=== PATIENT | female | born 1990 | race Caucasian/White ===

== ENCOUNTER 2024-01-28 14:26 | Inpatient (IN) | payer BC, OTHER ==
[~2024-01-28] VITALS: Ht 175.3 cm; Wt 101.2 kg
[2024-01-28 15:00] LABS: APPEARANCE,URINE Clear (CLEAR); BILIRUBIN,URINE Negative (NEGATIVE); BLOOD, URINE Moderate Ery/uL (NEGATIVE); COLOR,URINE LIGHT YELLOW (YELLOW); KETONES,URINE 15 mg/dL (NEGATIVE); LEUKOCYTE ESTERASE ,URINE Negative (NEGATIVE); NITRITE, URINE Negative (NEGATIVE); PROTEIN,URINE 100 mg/dl (NEGATIVE); UGLUCOSE Negative (NEGATIVE); UROBILINOGEN,URINE 0.2 EU/dL (0.2)
[2024-01-28 15:13] LABS: BASOPHILS # (AUTO) 0.1 K/uL (0.0-0.2); BASOPHILS % (AUTO) 0.3 % (0.0-2.0); EOSINOPHILS # (AUTO) 0.4 K/uL (0.0-0.7); EOSINOPHILS % (AUTO) 1.5 % (0.0-6.0); HEMATOCRIT 46 % (33-45); HEMOGLOBIN 14.8 g/dL (11.5-14.8); LYMPHOCYTES # (AUTO) 3.5 K/uL (0.8-4.8); LYMPHOCYTES % (AUTO) 14.4 % (20.0-44.0); MEAN CORPUSCULAR HEMOGLOBIN 29 PG (26.0-33.0); MEAN CORPUSCULAR HGB CONC 32 g/dl (31.0-36.0); MEAN CORPUSCULAR VOLUME 89 fL (82-100); MONOCYTES # (AUTO) 1.3 K/uL (0.1-1.30); MONOCYTES % (AUTO) 5.1 % (2.0-12.0); NEUTROPHILS # (AUTO) 19.3 K/uL (1.8-8.9); NEUTROPHILS % (AUTO) 78.7 % (43.0-81.0); PLATELET COUNT (AUTO) 357 K/uL (150-450); RED BLOOD CELL COUNT(AUTO) 5.18 MIL/uL (4.0-5.2); RED CELL DISTRIBUTION WIDTH 13.6 % (11.5-15.0); WHITE BLOOD COUNT (AUTO) 24.6 K/uL (4.3-11.0)
[2024-01-28 15:22] LABS: AMPHETAMINE, URINE NEGATIVE (NEGATIVE); BARBITURATE, URINE NEGATIVE (NEGATIVE); BENZODIAZEPINE, URINE NEGATIVE (NEGATIVE); COCCAINE, URINE NEGATIVE (NEGATIVE); OPIATE, URINE NEGATIVE (NEGATIVE); PHENCYCLIDINE SCREEN,URINE NEGATIVE (NEGATIVE)
[2024-01-28 15:23] LABS: CANNABINOID, URINE POSITIVE (NEGATIVE)
[2024-01-28 15:25] LABS: CALCIUM, SERUM 9.3 mg/dL (8.5-10.1); CARBON DIOXIDE 16 mmol/L (21-32); CHLORIDE 100 mmol/L (98-107); CREATININE 1.1 mg/dL (0.6-1.3); GLUCOSE 158 mg/dL (74-106); POTASSIUM 3.8 mmol/L (3.5-5.1); SODIUM SERUM 133 mmol/L (136-145); UREA NITROGEN, BLOOD 12 mg/dL (7-18)
[2024-01-28 15:26] LABS: ADD URINE CULTURE NO; BACTERIA,URINE Rare /HPF (None Seen); SQUAMOUS EPITHELIAL CELL,UR Moderate /HPF (None Seen); WBC,URINE 0-2 /HPF (0-3)
[2024-01-28 15:27] LABS: CALCIUM OXALATE CRYSTALS,UR Many /HPF (None Seen)
[2024-01-28] MEDS: IV NS 0.9% 1,000 ML BAG IV ONE ×2 (15:30→16:00)
[2024-01-28 15:31] LABS: INR 0.95 (0.91-1.10); PARTIAL THROMBOPLASTIN TIME 24.8 SEC (24.3-34.3); PROTHROMBIN TIME 9.8 SECS (9.2-11.1)
[2024-01-28 15:38] LABS: ALANINE AMINOTRANSFERASE 53 U/L (12-78); ALBUMIN 3.8 g/dL (3.4-5.0); ALCOHOL, BLOOD < 3 mg/dL (0-10); ALKALINE PHOSPHATASE 107 U/L (46-116); ASPARTATE AMINOTRANSFERASE 23 U/L (15-37); BILIRUBIN,DIRECT 0.1 mg/dL (0.0-0.2); BILIRUBIN,TOTAL 0.5 mg/dL (0.2-1.0); TOTAL PROTEIN, SERUM 8.1 g/dL (6.4-8.2)
[2024-01-28 15:43] LABS: ACETAMINOPHEN 0 ug/ml (10-30); SALICYLATE 1.7 mg/dL (2.8-20.0)
[2024-01-28] MEDS ORDERED: PROG100C15 PO (16:00)
[2024-01-28] MEDS ORDERED: ESTR2TAB PO (16:00)
[2024-01-28] MEDS ORDERED: SPIR100T PO (16:00)
[2024-01-28 16:13] LABS: SERUM AMMONIA 62 umol/L (11-32)
[2024-01-28] MEDS: LEVETIRACETAM (500MG) 1,000 MG in IV NS 0.9% 90 ML IV STA (16:20)
[2024-01-28] MEDS: CEFTRIAXONE 1 G in IV D5W 50 ML IV ONE (16:55)
[2024-01-28] MEDS: VANCOMYCIN 1 GM in IV D5W 250 ML IV ONE (17:30)
[2024-01-28] MEDS ORDERED: MAG HYDROX/AL HYDROX/SIMETH 30 ML UDC PO PRN (21:00)
[2024-01-28] MEDS ORDERED: ONDANSETRON HCL/PF 4 MG/2 ML VIAL IVP PRN (21:00)
[2024-01-28] MEDS ORDERED: ACETAMINOPHEN 325 MG TABLET PO PRN (21:00)
[2024-01-28] MEDS ORDERED: MAGNESIUM HYDROXIDE 30 ML UDC PO PRN (21:00)
[2024-01-28 21:18] VITALS: BP 111/64; TEMP 98.3; O2SAT 96
[2024-01-28] MEDS: ENOXAPARIN SODIUM 40 MG/0.4 ML DISP.SYRIN SQ SCH (22:08)
[2024-01-28] MEDS: IV NS 0.9% 1,000 ML IV PRN (22:09)
[2024-01-28] MEDS ORDERED: CEFEPIME 1 GM VIAL ONE (22:20)
[2024-01-28] MEDS: CEFEPIME 2 GM in IV D5W 100 ML IV SCH (22:35)
[2024-01-29] VITALS: BP 98/62; TEMP 98; O2SAT 96
[2024-01-29 04:00] VITALS: BP 98/57; TEMP 98.3; O2SAT 98
[2024-01-29] MEDS ORDERED: CEFEPIME 1 GM VIAL ONE (04:09)
[2024-01-29] MEDS ORDERED: LEVETIRACETAM (500MG) 500 MG/5 ML VIAL IV ONE (04:09)
[2024-01-29] MEDS: LEVETIRACETAM (500MG) 1,000 MG in IV NS 0.9% 90 ML IV SCH (04:18)
[2024-01-29 06:53] LABS: BASOPHILS # (AUTO) 0.1 K/uL (0.0-0.2); BASOPHILS % (AUTO) 0.4 % (0.0-2.0); EOSINOPHILS # (AUTO) 0.4 K/uL (0.0-0.7); EOSINOPHILS % (AUTO) 2.2 % (0.0-6.0); HEMATOCRIT 38 % (33-45); HEMOGLOBIN 12.8 g/dL (11.5-14.8); LYMPHOCYTES # (AUTO) 2.5 K/uL (0.8-4.8); LYMPHOCYTES % (AUTO) 15.2 % (20.0-44.0); MEAN CORPUSCULAR HEMOGLOBIN 30 PG (26.0-33.0); MEAN CORPUSCULAR HGB CONC 34 g/dl (31.0-36.0); MEAN CORPUSCULAR VOLUME 88 fL (82-100); MONOCYTES # (AUTO) 1.1 K/uL (0.1-1.30); MONOCYTES % (AUTO) 6.9 % (2.0-12.0); NEUTROPHILS # (AUTO) 12.1 K/uL (1.8-8.9); NEUTROPHILS % (AUTO) 75.3 % (43.0-81.0); PLATELET COUNT (AUTO) 264 K/uL (150-450); RED BLOOD CELL COUNT(AUTO) 4.33 MIL/uL (4.0-5.2); RED CELL DISTRIBUTION WIDTH 13.6 % (11.5-15.0); WHITE BLOOD COUNT (AUTO) 16.1 K/uL (4.3-11.0)
[2024-01-29 07:11] LABS: CALCIUM, SERUM 8.6 mg/dL (8.5-10.1); CREATININE 1.1 mg/dL (0.6-1.3); MAGNESIUM 2.2 mg/dL (1.8-2.4); PHOSPHORUS 3.5 mg/dL (2.5-4.9); POTASSIUM 3.4 mmol/L (3.5-5.1)
[2024-01-29 08:00] VITALS: BP 125/60; TEMP 97.9; O2SAT 98
[2024-01-29] MEDS: SPIRONOLACTONE 25 MG TABLET PO SCH (08:51)
[2024-01-29] MEDS: ESTRADIOL 1 MG TABLET PO SCH (08:51)
[2024-01-29] MEDS ORDERED: Medication Not On Formulary EA (Progesterone,Micronized (Prometrium) 100 MG) PO SCH (09:00)
[2024-01-29] MEDS: POTASSIUM CHLORIDE 20 MEQ TAB.PRT.SR PO SCH (11:19)
[2024-01-29 14:08] VITALS: BP 120/62; TEMP 97.7; O2SAT 98
[2024-01-29 16:00] VITALS: BP 118/60; TEMP 98.2; O2SAT 97
[2024-01-29] MEDS ORDERED: LEVE500T9 PO (18:13)
[2024-01-29] MEDS ORDERED: DOXY-326 PO (18:13)
[2024-01-29 20:00] VITALS: BP 113/69; TEMP 98; O2SAT 98
[2024-01-30] VITALS: BP 116/62; TEMP 97.8; O2SAT 98
[2024-01-30 04:00] VITALS: BP 129/62; TEMP 97.8; O2SAT 98
[2024-01-30 08:00] VITALS: BP 114/69; TEMP 96.9; O2SAT 99
[2024-01-30] MEDS: LEVETIRACETAM (250 MG) 250 MG TABLET PO SCH (16:24)
[2024-01-30 20:00] VITALS: BP 95/56; TEMP 98; O2SAT 98
[2024-01-31 04:00] VITALS: BP 106/54; TEMP 97.8; O2SAT 98
[2024-01-31 14:14] VITALS: BP 106/54; TEMP 97.8; O2SAT 98
[2024-01-31 16:00] VITALS: BP 100/72; TEMP 98.1; O2SAT 98
[2024-01-31] MEDS: OLANZAPINE 10 MG VIAL IM ONE (19:12)
[2024-02-01] MEDS ORDERED: OLANZAPINE 10 MG VIAL IM ONE (11:30)
[2024-02-02 08:00] VITALS: BP 100/72; TEMP 98.1; O2SAT 98
[2024-02-02 17:00] VITALS: BP 105/78; TEMP 98.3; O2SAT 97
[2024-02-03] MEDS: DIVALPROEX SODIUM 125 MG CAP.SPRINK PO SCH (13:00)
[2024-02-03] MEDS: LORAZEPAM 1 MG TABLET PO PRN (16:31)
== END 2024-02-03 19:11 | DRG 100 ==
LOC: EDSEX 14:26 → ER 14:29 → TELE1 19:55 → MEDSG1 01-30 13:05
PROVIDERS: ADMIT Nurse Practitioner Acute Care; ATTEND Nurse Practitioner Family
DX: R56.9 Unspecified convulsions (principal); J69.0 Pneumonitis due to inhalation of food and vomit; F84.0 Autistic disorder; R45.851 Suicidal ideations; E72.20 Disorder of urea cycle metabolism, unspecified; E87.20 Acidosis, unspecified; F33.9 Major depressive disorder, recurrent, unspecified; E87.1 Hypo-osmolality and hyponatremia; G93.40 Encephalopathy, unspecified; D68.69 Other thrombophilia; E66.01 Morbid (severe) obesity due to excess calories; Z88.0 Allergy status to penicillin; D72.829 Elevated white blood cell count, unspecified; F64.0 Transsexualism; Z87.820 Personal history of traumatic brain injury; Z20.822 Contact with and (suspected) exposure to COVID-19; F89 Unspecified disorder of psychological development; F60.9 Personality disorder, unspecified; F39 Unspecified mood [affective] disorder; F12.90 Cannabis use, unspecified, uncomplicated; Z68.32 Body mass index [BMI] 32.0-32.9, adult
CPT/HCPCS: 36415; 70450-TC; 71045-TC; 80048-TC; 80061-TC; 80076-TC; 81001; 82140-TC; 82962-TC; 83605-TC; 83735-TC; 84100-TC; 84443-TC; 84484-TC; 85025-TC; 85730-TC; 87040-TC; A4223; G0378; G0480; J0692; J0696; J1650; J1953; J3370; J3490; J7030; J7060

== ENCOUNTER 2024-02-03 15:12 | Inpatient (IN) | payer OTHER ==
[~2024-02-03] VITALS: Ht 175.3 cm; Wt 101.2 kg
[~2024-02-03 15:12] MED LIST: DOXY-326 PO; ESTR2TAB PO; LEVE500T9 PO; PROG100C15 PO; SPIR100T PO
[2024-02-03] MEDS: OLANZAPINE 10 MG VIAL IM ONE (19:37)
[2024-02-03] MEDS: LORAZEPAM INJ 2 MG/ML VIAL ONE (19:59)
[2024-02-03] MEDS ORDERED: LORAZEPAM 1 MG TABLET PO PRN (20:00)
[2024-02-03] MEDS ORDERED: ACETAMINOPHEN 325 MG TABLET PO PRN (20:00)
[2024-02-03] MEDS ORDERED: ZOLPIDEM TARTRATE 10 MG TABLET PO PRN (20:00)
[2024-02-03] MEDS ORDERED: MAG HYDROX/AL HYDROX/SIMETH 30 ML UDC PO PRN (20:00)
[2024-02-03] MEDS ORDERED: MAGNESIUM HYDROXIDE 30 ML UDC PO PRN (20:00)
[2024-02-03] MEDS: diphenhydrAMINE HCL 50 MG/ML VIAL IM ONE (20:07)
[2024-02-03] MEDS: LORAZEPAM INJ 2 MG/ML VIAL IM ONE (20:07)
[2024-02-03] MEDS: BLOOD SUGAR DIAGNOSTIC 1 EACH STRIP IN ONE (20:25)
[2024-02-04] MEDS ORDERED: Medication Not On Formulary EA (Progesterone,Micronized (Prometrium) 100 MG) PO SCH (09:00)
[2024-02-04] MEDS: SPIRONOLACTONE 25 MG TABLET PO SCH (09:47)
[2024-02-04] MEDS: ESTRADIOL 1 MG TABLET PO SCH (09:48)
[2024-02-04] MEDS: LEVETIRACETAM (250 MG) 250 MG TABLET PO SCH (09:48)
[2024-02-04] MEDS: DIVALPROEX SODIUM 125 MG CAP.SPRINK PO SCH (10:00)
[2024-02-04] MEDS: OLANZAPINE ZYDIS 5 MG TAB.RAPDIS PO SCH (10:00)
[2024-02-05] MEDS: Fluoxetine 10 mg capsule PO SCH (09:49)
[2024-02-05] MEDS ORDERED: OLANZAPINE 10 MG VIAL IM PRN (13:00)
[2024-02-05 16:00] VITALS: BP 125/95; TEMP 98; O2SAT 99
[2024-02-05 18:52] LABS: CREATININE 1.1 mg/dL (0.6-1.3)
[2024-02-05 18:58] LABS: CHOLESTEROL 107 mg/dL (<200); HDL CHOLESTEROL 35 mg/dL (40-60); LDL 54 mg/dL (0-99); TRIGLYCERIDES 153 mg/dL (30-150)
[2024-02-05 21:00] VITALS: BP 123/74; TEMP 98; O2SAT 98
[2024-02-06] MEDS: DULOXETINE HCL 30 MG CAPSULE.DR PO SCH (08:35)
[2024-02-06 16:00] VITALS: BP 118/71; TEMP 98; O2SAT 100
[2024-02-06 20:00] VITALS: BP 144/70; TEMP 98.4; O2SAT 100
[2024-02-07 08:00] VITALS: BP 112/79; TEMP 98; O2SAT 94
[2024-02-07 15:57] VITALS: BP 119/76; TEMP 98; O2SAT 100
[2024-02-07 21:34] VITALS: BP 115/64; TEMP 98; O2SAT 98
[2024-02-08 08:00] VITALS: BP 123/91; TEMP 98.2; O2SAT 99
[2024-02-08 16:00] VITALS: BP 129/87; TEMP 98; O2SAT 98
[2024-02-08 21:11] VITALS: BP 133/65; TEMP 98.3; O2SAT 98
[2024-02-09 08:00] VITALS: BP 109/74; TEMP 98.1; O2SAT 98
[2024-02-09 16:00] VITALS: BP 131/59; TEMP 98.1; O2SAT 98
[2024-02-09 20:42] VITALS: BP 121/85; TEMP 99.1; O2SAT 100
[2024-02-10 08:00] VITALS: BP 139/82; TEMP 98; O2SAT 98
== END 2024-02-10 11:10 | disposition home or self-care (01) | DRG 885 ==
LOC: GPS 18:55
PROVIDERS: ADMIT Psychiatry & Neurology Psychiatry; ATTEND Nurse Practitioner Acute Care
DX: F31.9 Bipolar disorder, unspecified (principal); F63.81 Intermittent explosive disorder; F79 Unspecified intellectual disabilities; R45.851 Suicidal ideations; F84.0 Autistic disorder; F60.89 Other specific personality disorders; F64.0 Transsexualism; G40.909 Epilepsy, unspecified, not intractable, without status epilepticus; M51.16 Intervertebral disc disorders with radiculopathy, lumbar region; M21.371 Foot drop, right foot; R20.2 Paresthesia of skin; E66.9 Obesity, unspecified; Z68.32 Body mass index [BMI] 32.0-32.9, adult; F12.10 Cannabis abuse, uncomplicated; G89.21 Chronic pain due to trauma; M25.551 Pain in right hip; T14.90XS Injury, unspecified, sequela; W17.89XS Other fall from one level to another, sequela; Z91.199 Patient's noncompliance with other medical treatment and regimen due to unspecified reason; Z91.51 Personal history of suicidal behavior; Z87.820 Personal history of traumatic brain injury; Z79.890 Hormone replacement therapy; Z79.899 Other long term (current) drug therapy
CPT/HCPCS: 36415; 72131-TC; 72148-TC; 72192-TC; 80061-TC; 82140-TC; 82565-TC; 97112-TC; 97116-TC; 97530-TC; J1200; J2060; J3490

== ENCOUNTER → 2024-06-17 | Emergency (ER) | payer BC, MEDICAID ==
[~2024-06-17] VITALS: Ht 182.9 cm; Wt 136.1 kg
[~2024-06-17] MED LIST changes: -DOXY-326 PO; +IBUPROFEN 600 MG TABLET ONE
[2024-06-17 12:16] LABS: BASOPHILS % (AUTO) 0.4 % (0.0-2.0); EOSINOPHILS # (AUTO) 0.5 K/uL (0.0-0.7); EOSINOPHILS % (AUTO) 5.2 % (0.0-6.0); HEMATOCRIT 40 % (33-45); HEMOGLOBIN 13.3 g/dL (11.5-14.8); LYMPHOCYTES # (AUTO) 1.9 K/uL (0.8-4.8); LYMPHOCYTES % (AUTO) 19.5 % (20.0-44.0); MEAN CORPUSCULAR HEMOGLOBIN 29 PG (26.0-33.0); MEAN CORPUSCULAR HGB CONC 33 g/dl (31.0-36.0); MEAN CORPUSCULAR VOLUME 88 fL (82-100); MONOCYTES # (AUTO) 0.7 K/uL (0.1-1.30); MONOCYTES % (AUTO) 6.6 % (2.0-12.0); NEUTROPHILS # (AUTO) 6.7 K/uL (1.8-8.9); NEUTROPHILS % (AUTO) 68.3 % (43.0-81.0); PLATELET COUNT (AUTO) 282 K/uL (150-450); RED BLOOD CELL COUNT(AUTO) 4.54 MIL/uL (4.0-5.2); RED CELL DISTRIBUTION WIDTH 13.9 % (11.5-15.0); WHITE BLOOD COUNT (AUTO) 9.8 K/uL (4.3-11.0)
[2024-06-17 12:18] LABS: APPEARANCE,URINE CLEAR (CLEAR); BILIRUBIN,URINE NEGATIVE (NEGATIVE); BLOOD, URINE NEGATIVE Ery/uL (NEGATIVE); COLOR,URINE YELLOW (YELLOW); KETONES,URINE NEGATIVE (NEGATIVE); LEUKOCYTE ESTERASE ,URINE NEGATIVE (NEGATIVE); NITRITE, URINE NEGATIVE (NEGATIVE); PROTEIN,URINE TRACE mg/dl (NEGATIVE); UGLUCOSE NEGATIVE (NEGATIVE); UROBILINOGEN,URINE 0.2 EU/dL (0.2)
[2024-06-17 12:20] LABS: PREGNANCY TEST URINE QUAL NEGATIVE (NEGATIVE)
[2024-06-17 12:27] LABS: ALANINE AMINOTRANSFERASE 47 U/L (12-78); ALBUMIN 3.3 g/dL (3.4-5.0); ALCOHOL, BLOOD < 3 mg/dL (0-10); ALKALINE PHOSPHATASE 80 U/L (46-116); ASPARTATE AMINOTRANSFERASE 22 U/L (15-37); BILIRUBIN,DIRECT 0.1 mg/dL (0.0-0.2); BILIRUBIN,TOTAL 0.4 mg/dL (0.2-1.0); CALCIUM, SERUM 9.2 mg/dL (8.5-10.1); CARBON DIOXIDE 26 mmol/L (21-32); CHLORIDE 104 mmol/L (98-107); CREATININE 0.8 mg/dL (0.6-1.3); GLUCOSE 103 mg/dL (74-106); POTASSIUM 3.8 mmol/L (3.5-5.1); SODIUM SERUM 139 mmol/L (136-145); TOTAL PROTEIN, SERUM 7.1 g/dL (6.4-8.2); UREA NITROGEN, BLOOD 3 mg/dL (7-18)
[2024-06-17 12:32] LABS: ACETAMINOPHEN <10 ug/ml (10-30); SALICYLATE 1.7 mg/dL (2.8-20.0)
[2024-06-17 12:32] LABS: AMPHETAMINE, URINE NEGATIVE (NEGATIVE); BARBITURATE, URINE POSITIVE (NEGATIVE); BENZODIAZEPINE, URINE NEGATIVE (NEGATIVE); CANNABINOID, URINE POSITIVE (NEGATIVE); COCCAINE, URINE NEGATIVE (NEGATIVE); OPIATE, URINE NEGATIVE (NEGATIVE); PHENCYCLIDINE SCREEN,URINE NEGATIVE (NEGATIVE)
[2024-06-17 12:34] LABS: ADD URINE CULTURE NO; BACTERIA,URINE Rare /HPF (None Seen); RBC,URINE NONE SEEN /HPF (0-2); SQUAMOUS EPITHELIAL CELL,UR Few /HPF (None Seen); WBC,URINE 0-2 /HPF (0-3)
[2024-06-17] MEDS: IBUPROFEN 600 MG TABLET PO ONE (15:03)
[2024-06-17 15:56] VITALS: BP 130/80; TEMP 98.6; O2SAT 98
== END | disposition home or self-care (01) ==
LOC: ER 11:34
DX: R45.851 Suicidal ideations (principal); R10.2 Pelvic and perineal pain; Z98.890 Other specified postprocedural states; Z79.899 Other long term (current) drug therapy; Z20.822 Contact with and (suspected) exposure to COVID-19; Z88.1 Allergy status to other antibiotic agents
CPT/HCPCS: 36415; 80048-TC; 80076-TC; 81001; 84703-TC; 85025-TC; G0480